=== PATIENT | male | born 1980 | race Native Hawaiian/Other Pacific Islander ===

== ENCOUNTER 2016-11-13 | Emergency (ER) | payer OTHER ==
--- NOTE | 2016-11-13 10:22 | ED ---
Lower Extremity Injury HPI - General Chief Complaint: Extremity Injury, Lower Stated Complaint: left ankle pain Time Seen by Provider: 11/13/16 10:13 Source: patient Mode of arrival: ambulatory Limitations: no limitations - History of Present Illness Initial Comments: 46-year-old white male presents with a complaint of left ankle pain. He states that he was walking down the stairs approximately one week ago and developed some pain to the lateral ankle region. He denies any significant trauma. He has been able to ambulate with a slight limp. No modifying factors. No other injuries. No previous left ankle problems. Review of Systems ROS Statement: Those systems with pertinent positive or pertinent negative responses have been documented in the HPI. ROS Other: All systems not noted in ROS Statement are negative. Past Medical History History of Any Multi-Drug Resistant Organisms: None Reported Past Surgical History: Appendectomy Additional Past Surgical History / Comment(s): left leg, right hand Past Psychological History: Anxiety, Bipolar, Depression, Schizoaffective Disorder, Schizophrenia Smoking Status: Never smoker Past Alcohol Use History: None Reported Past Drug Use History: None Reported General Exam Limitations: no limitations General appearance: alert, in no apparent distress Extremities exam: Present: tenderness (There is some slight tenderness present just medially to the left lateral malleolus. There is no direct tenderness over the bone. There is excellent range of motion of the left ankle. Strength is intact. Patient is ambulatory without any significant difficulty.) Neurological exam: Present: alert, oriented X3. Absent: motor sensory deficit Psychiatric exam: Present: normal affect, normal mood Skin exam: Present: warm, intact Course Vital Signs 11/13/16 09:58 Temperature 97.3 F L Pulse Rate 62 Respiratory 20 Rate Blood Pressure 148/75 O2 Sat by Pulse 97 Oximetry Medical Decision Making - Medical Decision Making The patient was seen and examined. It is felt as though he does have a minor left ankle sprain but this has been fairly persistent over the past week. He refuses any x-ray. An Elijah wrap is applied. He'll be written for a air splint for the left ankle. He leaves in no distress. Disposition Clinical Impression: Left ankle sprain Disposition: HOME SELF-CARE Condition: Good Instructions: Ankle Sprain (ED) Additional Instructions: Please use Motrin and/or Tylenol if needed for pain. Referrals: None,Stated [Primary Care Provider] - 11/18/16 Time of Disposition: 10:21
== END 2016-11-13 10:37 | disposition home or self-care (01) ==
CPT/HCPCS: 99283

== ENCOUNTER 2017-05-25 10:35 | Emergency (ER) | payer OTHER ==
[2017-05-25] MEDS ORDERED: IBUPROFEN 600 MG STARTER PACK 4 TAB BTL PO STA (11:19)
--- NOTE | 2017-05-25 11:24 | ED ---
General Adult HPI - General Chief complaint: Back Pain/Injury Stated complaint: BACK PAIN INJURY Time Seen by Provider: 05/25/17 10:57 Source: patient, family, RN notes reviewed Mode of arrival: wheelchair Limitations: no limitations - History of Present Illness Initial comments: Chief complaint history of present illness this is a 36-year-old male with complaint of severe right lower back pain. Patient reports within the past hour he lifted a child which caused severe pain. Patient reports past history includes having fallen 15 feet onto his buttocks over 10 years ago. He states that time he was told head injuries to his lower spine including disc ruptures. He denies having any other x-rays or CAT scans or MRIs since that time. - Related Data Home Medications Medication Instructions Recorded Confirmed Ascorbic Acid [Vitamin C] 500 mg PO DAILY 11/13/16 05/25/17 DULoxetine HCL [Cymbalta] 60 mg PO BID 11/13/16 05/25/17 OXcarbazepine [Trileptal] 300 mg PO BID 05/25/17 05/25/17 QUEtiapine XR [SEROquel XR] 150 mg PO HS 05/25/17 05/25/17 traZODone HCL 50 mg PO HS 05/25/17 05/25/17 Previous Rx's Medication Instructions Recorded Dexamethasone 0.75 mg PO DAILY #12 tablet 05/25/17 Diazepam [Valium] 5 mg PO BID #6 tab 05/25/17 Hydrocodone/Acetaminophen [[place] 1 each PO Q6HR PRN #16 tab 05/25/17 5-325] Allergies Allergy/AdvReac Type Severity Reaction Status Date / Time bee venom protein (honey bee) Allergy Anaphylaxis Verified 05/25/17 12:15 Review of Systems ROS Statement: Those systems with pertinent positive or pertinent negative responses have been documented in the HPI. Review of systems. No headache chest pain shortness breath GI/ problems. He has right paralumbar pain stops at the right mid buttock. Past history of sciatica. All systems reviewed. Past medical problems bipolar, PTSD, explosive disorder behavior. States he does not take his psych meds. Past history of sciatica on the right side from a fall as noted above. Surgeries include hand tendon repair, leg and appendectomy. Patient's family history no cancers but there is diabetes. Patient has ALLERGIES to bees. Does not smoke drink alcohol last night. ROS Other: All systems not noted in ROS Statement are negative. Past Medical History Additional Past Medical History / Comment(s): intermittent explosive disorder ptsd bipolar History of Any Multi-Drug Resistant Organisms: None Reported Past Surgical History: Appendectomy Additional Past Surgical History / Comment(s): left leg, right hand Past Psychological History: Anxiety, Bipolar, Depression, Schizoaffective Disorder, Schizophrenia Smoking Status: Never smoker Past Alcohol Use History: Occasional Past Drug Use History: None Reported General Exam - General Exam Comments Initial Comments: General: The patient is awake and alert, complains or right paralumbar pain from lifting one hour ago. Vital signs temp 99.2 pulse 74 respiratory rate 18 pulse ox 90% room air blood pressure 126/95 Eye: Pupils are equal, round and reactive to light, extra-ocular movements are intact ; there is normal conjunctiva bilaterally. No signs of icterus. Ears, nose, mouth and throat: There are moist mucous membranes and no oral lesions. Patient has a tongue ring. Neck: The neck is supple, there is no tenderness or JVD. Cardiovascular: There is a regular rate and rhythm. No murmur, rub or gallop is appreciated. Respiratory: Lungs are clear to auscultation, respirations are non-labored, breath sounds are equal. No wheezes, stridor, rales, or rhonchi. Gastrointestinal: Soft, non-distended, non-tender abdomen without masses or organomegaly noted. There is no rebound or guarding present. No CVA tenderness. Bowel sounds are unremarkable. No difficulty squeezing his buttock muscles are controlling bowel movements or urination. Back: Right paralumbar pain no rash or bruising noted. Palpation increases discomfort. Movement increases discomfort. Pain stays in that right general area radiating down to the mid right buttock. Able to move his toes and feet knees but with discomfort to the lumbar spine area. Positive leg lift test. Musculoskeletal: Normal ROM, no tenderness, There is no pedal edema. There is no calf tenderness or swelling. Sensation intact. Pulses equal bilaterally 2+. Neurological: No neuro deficits other than complaint of pain to the right paralumbar region. Pain with movement. Skin: Skin is warm and dry and no rashes or lesions are noted. Psychiatric: History of PTSD, bipolar, explosive disorder behavior. Does not take his medications. Not currently complaining of any depression etc. Limitations: no limitations Course Vital Signs 05/25/17 05/25/17 10:48 11:09 Temperature 99.2 F 98.3 F Pulse Rate 74 64 Respiratory 18 18 Rate Blood Pressure 126/95 143/76 O2 Sat by Pulse 98 98 Oximetry Medical Decision Making - Medical Decision Making CT of the lumbar spine was done and reviewed by radiologist his impression is significant findings include L4-L5 disc space mild degenerative disc space narrowing. Broad based subligamentous disc herniation at the bases the ventral thecal sac. Bilateral lateral recess stenosis and suspected mild central stenosis. Neural foramina are present bilaterally. L5-S1 moderate degenerative disc space narrowing. Posterior central disc herniation with effacement of the ventral thecal sac. Mild bilateral lateral recess stenosis is difficult to exclude. No evidence for central stenosis. Foramina are patent bilaterally. No paraspinal mass is identified. Lumbar segments of free of fracture. Impression; degenerative disc disease with disc herniations at L4- L5 and L5-S1. Suspect lateral recess stenosis and central stenosis at L4-L5. As read by Dr. Contreras Patient will receive a shot of Dilaudid in the emergency room as well as Decadron 10 IM. Discharged on Decadron dose pack, muscle relaxant and pain medication. Advised follow-up with a family physician he does not have one he is to follow-up with the on-call family physician as well as local orthopedic surgeon takes care of bad backs. Disposition Clinical Impression: Degenerative disc disease Disposition: HOME SELF-CARE Condition: Stable Instructions: Chronic Back Pain (ED), Degenerative Disc Disease (ED) Additional Instructions: Take medications as directed. Follow-up with [facility] as well as on-call family physician. [facility] for evaluation by back surgeon. Prescriptions: Dexamethasone 0.75 mg PO DAILY #12 tablet Diazepam [Valium] 5 mg PO BID #6 tab Hydrocodone/Acetaminophen [[place] 5-325] 1 each PO Q6HR PRN #16 tab PRN Reason: Pain Referrals: None,Stated [Primary Care Provider] - 1-2 days Time of Disposition: 12:38
--- NOTE | 2017-05-25 11:49 | CT ---
EXAMINATION TYPE: CT lumbar spine wo con DATE OF EXAM: 05/25/2017 COMPARISON: NONE HISTORY: severe low back pain CT DLP: 1858 mGycm CONTRAST: Unenhanced CT of the lumbar spine is performed. Unenhanced CT of the lumbar spine was performed. Bone and soft tissue window settings are submitted as well as coronal and sagittal reconstructions. L1-L2: Normal disc space height. No disc herniation protrusion or central stenosis. No facet joint arthropathy. No evidence for foraminal encroachment. L2-L3: Normal disc space height. No disc herniation protrusion or central stenosis. No facet joint arthropathy. No evidence for foraminal encroachment. L3-L4: Normal disc space height. No disc herniation protrusion or central stenosis. No facet joint arthropathy. No evidence for foraminal encroachment. L4-L5: Mild degenerative disc space narrowing. Broad-based subligamentous disc herniation effaces the ventral thecal sac. Bilateral lateral recess stenosis and suspected mild central stenosis. Neural fo ramina are patent bilaterally. L5-S1: Moderate degenerative disc space narrowing. Posterocentral disc herniation with effacement of the ventral thecal sac. Mild bilateral lateral recess stenosis is difficult to exclude. No evidence f or central stenosis. Foramina are patent bilaterally. No paraspinal masses are identified. Lumbar segments are free if fracture. IMPRESSION: 1. Degenerative disc disease with disc herniations at L4-5 and L5-S1. Suspect lateral recess stenosis and central stenosis at L4-5. See above.
[2017-05-25] MEDS ORDERED: HYDROmorphone 1 MG/ML 1 ML SYRINGE IM STA (12:37)
[2017-05-25] MEDS ORDERED: DEXAMETHASONE SOD PHOSPHATE 10 MG/ML 1 ML VIAL IM STA (12:37)
[2017-05-25 12:58] VITALS: BP 139/84; PULSE 65; RESP 17; TEMP 98
== END 2017-05-25 13:00 | disposition home or self-care (01) ==
LOC: EC 10:35
DX: M51.36 Other intervertebral disc degeneration, lumbar region (principal); M51.27 Other intervertebral disc displacement, lumbosacral region; F31.9 Bipolar disorder, unspecified; F43.10 Post-traumatic stress disorder, unspecified; F41.9 Anxiety disorder, unspecified; F25.9 Schizoaffective disorder, unspecified; F20.9 Schizophrenia, unspecified; Z90.49 Acquired absence of other specified parts of digestive tract; Z91.030 Bee allergy status; Z79.899 Other long term (current) drug therapy
CPT/HCPCS: 99283; 96372 ×2; 72131; J1100; J1170

== ENCOUNTER 2019-12-14 02:59 | Emergency (ER) | payer OTHER ==
[2019-12-14 03:06] VITALS: TEMP 98.3
[2019-12-14] MEDS ORDERED: IBUPROFEN 400 MG TAB PO STA (03:40)
[2019-12-14 04:18] VITALS: BP 122/76; RESP 16
--- NOTE | 2019-12-14 05:18 | CT ---
EXAMINATION TYPE: CT brain wo con DATE OF EXAM: 12/14/2019 COMPARISON: 07/28/2011 HISTORY: Patient presents with AMS. CT DLP: 1098.4 mGycm Automated exposure control for dose reduction was used. Ventricles and sulci appear normal. There is no mass effect nor midline shift. There is no sign of in tracranial hemorrhage. The calvarium is intact. IMPRESSION: Normal unenhanced head CT scan. No change.
[2019-12-14 06:14] VITALS: PULSE 65
--- NOTE | 2019-12-14 06:31 | ED ---
Back Pain HPI - General Chief Complaint: Back Pain/Injury Stated Complaint: Back Spasms Time Seen by Provider: 12/14/19 03:07 Source: patient, EMS Limitations: no limitations - History of Present Illness MD Complaint: back pain -: hour(s) Similar Symptoms Previously: Yes Place: street Radiation: none Severity: moderate Quality: other (Spasms) Consistency: intermittent Improves With: none Worsens With: none Associated Symptoms: denies other symptoms - Related Data Home Medications Medication Instructions Recorded Confirmed DULoxetine HCL [Cymbalta] 60 mg PO DAILY 11/13/16 07/06/17 QUEtiapine XR [SEROquel XR] 150 mg PO HS 05/25/17 07/06/17 Cyclobenzaprine [Flexeril] 10 mg PO TID 07/06/17 07/06/17 Lisinopril [Zestril] 5 mg PO DAILY 07/06/17 07/06/17 OXcarbazepine [Trileptal] 150 mg PO BID 07/06/17 07/06/17 Previous Rx's Medication Instructions Recorded Dexamethasone 0.75 mg PO DAILY #12 tab 07/06/17 traMADol HCl [Ultram] 50 mg PO Q6H PRN #15 tab 07/06/17 Ibuprofen 800 mg PO TID #20 tablet 12/14/19 Allergies Allergy/AdvReac Type Severity Reaction Status Date / Time bee venom protein (honey bee) Allergy Anaphylaxis Verified 07/06/17 19:46 Review of Systems ROS Statement: Those systems with pertinent positive or pertinent negative responses have been documented in the HPI. ROS Other: All systems not noted in ROS Statement are negative. Constitutional: Denies: fever, chills, weakness Respiratory: Denies: cough Cardiovascular: Denies: chest pain Gastrointestinal: Denies: abdominal pain, vomiting, diarrhea Genitourinary: Denies: dysuria, frequency, hematuria, testicular pain Musculoskeletal: Reports: as per HPI, back pain Neurological: Denies: weakness, numbness, paresthesias Past Medical History Additional Past Medical History / Comment(s): intermittent explosive disorder ptsd bipolar History of Any Multi-Drug Resistant Organisms: None Reported Past Surgical History: Appendectomy Additional Past Surgical History / Comment(s): left leg, right hand Past Psychological History: Anxiety, Bipolar, Depression, Schizoaffective Disorder, Schizophrenia Smoking Status: Current every day smoker Past Alcohol Use History: Occasional Past Drug Use History: Marijuana, Methamphetamine General Exam Limitations: no limitations General appearance: alert, appears intoxicated Head exam: Present: atraumatic, normocephalic Eye exam: Present: normal appearance. Absent: scleral icterus, conjunctival injection Neck exam: Present: normal inspection, full ROM Respiratory exam: Present: normal lung sounds bilaterally. Absent: respiratory distress, wheezes, rales, rhonchi, stridor Cardiovascular Exam: Present: regular rate, normal rhythm, normal heart sounds. Absent: systolic murmur, diastolic murmur, rubs, gallop GI/Abdominal exam: Present: soft. Absent: distended, tenderness, guarding, rebound, rigid, organomegaly, mass, pulsatile mass, hernia Extremities exam: Present: normal inspection, normal capillary refill. Absent: pedal edema, calf tenderness Neurological exam: Present: reflexes normal. Absent: motor sensory deficit Skin exam: Present: warm, dry, intact, normal color Course Vital Signs 12/14/19 12/14/19 12/14/19 03:01 04:15 06:13 Temperature 98.3 F Pulse Rate 51 L 77 65 Respiratory 18 16 16 Rate Blood Pressure 132/87 122/76 O2 Sat by Pulse 100 98 95 Oximetry Disposition Clinical Impression: Back spasm Disposition: HOME SELF-CARE Condition: Good Instructions (If sedation given, give patient instructions): Muscle Spasm (ED) Prescriptions: Ibuprofen 800 mg PO TID #20 tablet Is patient prescribed a controlled substance at d/c from ED?: No Referrals: None,Stated [Primary Care Provider] - 1-2 days
== END 2019-12-14 07:00 | disposition home or self-care (01) ==
LOC: EC 02:59
DX: M62.830 Muscle spasm of back (principal); F10.129 Alcohol abuse with intoxication, unspecified; F31.9 Bipolar disorder, unspecified; F41.9 Anxiety disorder, unspecified; F20.9 Schizophrenia, unspecified; F43.10 Post-traumatic stress disorder, unspecified; F17.200 Nicotine dependence, unspecified, uncomplicated; Z91.030 Bee allergy status; Z79.899 Other long term (current) drug therapy
CPT/HCPCS: 70450; 99284